=== PATIENT | male | born 1935 | race Caucasian/White ===

== ENCOUNTER 2016-09-09 13:14 | Emergency (ER) | payer MEDICARE, OTHER ==
[2016-09-09] MEDS ORDERED: Sodium Chloride 0.9% 10 ML Syringe FLUSH PRN (13:25)
[2016-09-09] MEDS ORDERED: Aspirin 81 MG Tab.Chew PO ONE (13:28)
[2016-09-09 13:35] VITALS: BP 160/101
--- NOTE | 2016-09-09 13:48 | CR ---
Chest 1V Frontal HISTORY: Shortness of breath. Comparison: 12/06/2012. FINDINGS: Cardiac size and pulmonary vessels are normal. The lungs are clear. IMPRESSION: Negative AP chest.
--- NOTE | 2016-09-09 14:10 | EDM.PDOC ---
ED HISTORY OF PRESENT ILLNESS - General Chief Complaint: Chest Pain Stated Complaint: CHEST PAIN Time Seen by Provider: 09/09/16 14:04 Source: Reports: Patient, Family History Limitations: Reports: No limitations - History of Present Illness INITIAL COMMENTS - FREE TEXT/NARRATIVE: Pt has been having sharp chest pain over the left chest that comes and goes. r Timing/Duration: Reports: Day(s):, Other ( getting more frequent) Severity: mild Location, General: Reports: chest Associated Symptoms: Reports: chest pain, shortness of breath, other (pt is only sob when he has the chest pain. ) - Related Data Allergies/ADRs: Allergies Allergy/AdvReac Type Severity Reaction Status Date / Time No Known Allergies Allergy Verified 02/14/13 10:11 Home Meds: Home Meds Donepezil [Aricept] 5 mg PO BEDTIME 02/14/13 [History] LORazepam [Ativan] 2 mg PO ASDIRECTED 02/14/13 [History] Past Medical History HEENT History: Reports: Hard of hearing Psychiatric History: Reports: Dementia Oncologic (Cancer) History: Reports: Prostate Social & Family History - Tobacco Use Smoking Status *Q: Former Smoker - Caffeine Use Caffeine Use: Reports: Coffee - Recreational Drug Use Recreational Drug Use: No ED ROS GENERAL - Review of Systems Review Of Systems: See Below Constitutional: Reports: no symptoms HEENT: Reports: No symptoms Respiratory: Reports: Shortness of Breath Cardiovascular: Reports: Chest pain, Other ( this pain comes and goes. ) Endocrine: Reports: no symptoms GI/Abdominal: Reports: No symptoms : Reports: no symptoms Musculoskeletal: Reports: no symptoms Skin: Reports: no symptoms Neurological: Reports: No Symptoms ED EXAM, GENERAL - Physical Exam Exam: See Below Free Text/Narrative:: pt is not having distress at this time. He states his chest pain does come and go. Exam Limited By: No limitations General Appearance: alert, no apparent distress Ears: normal TMs Nose: normal inspection Throat/Mouth: Normal inspection Head: atraumatic Neck: normal inspection Respiratory/Chest: no respiratory distress Cardiovascular: regular rate, rhythm GI/Abdominal: soft, non tender (Male) Exam: Deferred Rectal (Males) Exam: Deferred Back Exam: normal inspection Extremities: normal inspection Neurological: alert, oriented, other (Pt is somewhat forgetful ) Psychiatric: normal affect Course - Vital Signs Last Recorded V/S: Last Vital Signs Temp 36.3 C 09/09/16 13:35 Pulse 100 09/09/16 13:35 Resp 18 09/09/16 13:35 BP 160/101 H 09/09/16 13:35 Pulse Ox 97 09/09/16 13:35 - Orders/Labs/Meds Orders: Active Orders 24 hr Category Date Time Status EKG Documentation Completion [RC] ASDIRECTED Care 09/09/16 13:26 Active UA W/MICROSCOPIC [URIN] Urgent Lab 09/09/16 13:26 Uncollected Sodium Chloride 0.9% [Saline Flush] Med 09/09/16 13:25 Active 10 ml FLUSH ASDIRECTED PRN Saline Lock Insert [OM.PC] Routine Oth 09/09/16 13:25 Ordered EKG 12 Lead [EK] Routine Ther 09/09/16 13:26 Ordered Medication Orders Sodium Chloride (Saline Flush) 10 ml FLUSH ASDIRECTED PRN PRN Reason: Keep Vein Open Last Admin: 09/09/16 13:41 Dose: 10 ml Labs: Laboratory Tests 09/09/16 09/09/16 09/09/16 Range/Units 13:28 13:28 13:28 WBC 6.7 (4.5-11.0) K/uL RBC 4.89 (4.30-5.90) M/uL Hgb 15.8 H (12.0-15.0) g/dL Hct 44.1 (40.0-54.0) % MCV 90 (80-98) fL MCH 32 H (27-31) pg MCHC 36 (32-36) % Plt Count 205 (150-400) K/uL Neut % (Auto) 65 (36-66) % Lymph % (Auto) 25 (24-44) % [place] % (Auto) 9 H (2-6) % Eos % (Auto) 1 L (2-4) % Baso % (Auto) 1 (0-1) % Sodium 141 (140-148) mmol/L Potassium 3.6 (3.6-5.2) mmol/L Chloride 103 (100-108) mmol/L Carbon Dioxide 25 (21-32) mmol/L Anion Gap 12.8 (5.0-14.0) mmol/L BUN 16 (7-18) mg/dL Creatinine 1.3 (0.8-1.3) mg/dL Est Cr Clr Drug Dosing 41.67 mL/min Estimated GFR (MDRD) 53 L (>60) Glucose 113 H (74-106) mg/dL Calcium 8.7 (8.5-10.1) mg/dL Total Bilirubin 0.6 (0.2-1.0) mg/dL AST 22 (15-37) U/L ALT 27 (12-78) U/L Alkaline Phosphatase 54 (46-116) U/L Creatine Kinase 120 (39-308) U/L Troponin I < 0.017 (0.000-0.056) ng/mL Total Protein 7.9 (6.4-8.2) g/dL Albumin 4.1 (3.4-5.0) g/dL Globulin 3.8 H (2.3-3.5) g/dL Albumin/Globulin Ratio 1.1 L (1.2-2.2) Meds: Medications Generic Name Dose Route Start Last Admin Trade Name Freq PRN Reason Stop Dose Admin Sodium Chloride 10 ml 09/09/16 13:25 09/09/16 13:41 Saline Flush FLUSH 10 ml ASDIRECTED PRN Administration Keep Vein Open Discontinued Medications Generic Name Dose Route Start Last Admin Trade Name Freq PRN Reason Stop Dose Admin Aspirin 324 mg 09/09/16 13:28 09/09/16 13:40 Aspirin PO 09/09/16 13:29 324 mg ONETIME ONE Administration - Re-Assessments/Exams Free Text/Narrative Re-Assessment/Exam: 09/09/16 14:37 Pt arrived pain in the left chest. The pain comes and goes and it only lasts a few seconds and then it comes back. He does not get sweaty when he has the pain. He had no acute changes on ekg. he had normal cardiac enzymes and does not have pain at this time. His chest xray did not show acute changes. 09/09/16 14:39 Departure - Departure Time of Disposition: 14:41 Disposition: Home, Self-Care 01 Condition: fair Clinical Impression: Atypical chest pain Forms: ED Department Discharge Care Plan Goals: rtc for a stress test--nelile sam with Shivam Waite end of next week, rtc to the ER if his chest pain should get severe. - My Orders Last 24 Hours: My Active Orders 09/09/16 13:25 Sodium Chloride 0.9% [Saline Flush] 10 ml FLUSH ASDIRECTED PRN Saline Lock Insert [OM.PC] Routine 09/09/16 13:26 EKG Documentation Completion [RC] ASDIRECTED UA W/MICROSCOPIC [URIN] Urgent EKG 12 Lead [EK] Routine - Assessment/Plan Last 24 Hours: My Active Orders 09/09/16 13:25 Sodium Chloride 0.9% [Saline Flush] 10 ml FLUSH ASDIRECTED PRN Saline Lock Insert [OM.PC] Routine 09/09/16 13:26 EKG Documentation Completion [RC] ASDIRECTED UA W/MICROSCOPIC [URIN] Urgent EKG 12 Lead [EK] Routine
== END 2016-09-09 15:21 | disposition home or self-care (01) ==
LOC: JP.ED 13:14
DX: R07.89 Other chest pain (principal); F03.90 Unspecified dementia, unspecified severity, without behavioral disturbance, psychotic disturbance, mood disturbance, and anxiety; Z79.899 Other long term (current) drug therapy; Z85.46 Personal history of malignant neoplasm of prostate; Z87.891 Personal history of nicotine dependence
CPT/HCPCS: 36415; 71010; 80053; 82550; 84484; 85025; 93005; 99285; A9270; J7050; 93010; 99283

== ENCOUNTER 2016-11-24 19:57 | Inpatient (IN) | payer MEDICARE, OTHER ==
[2016-11-24] MEDS ORDERED: LORazepam 1 MG Tab PO ONE (21:08)
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
[2016-11-24] MEDS ORDERED: Sodium Chloride 0.9% 1,000 ML IV SCH (22:15)
[2016-11-24] MEDS ORDERED: Zolpidem 5 MG Tab PO PRN (22:50)
[2016-11-24] MEDS ORDERED: LORazepam 2 MG/ML MDV IV PRN (22:50)
[2016-11-24] MEDS ORDERED: Morphine 2 MG/ML Syringe IVPUSH PRN (22:50)
[2016-11-24] MEDS ORDERED: LORazepam 2 MG/ML MDV IVPUSH PRN (22:50)
[2016-11-24] MEDS ORDERED: Albuterol 0.083% 2.5 MG/3 ML Neb Soln NEB PRN (22:50)
[2016-11-24] MEDS ORDERED: Acetaminophen 325 MG Tab PO PRN (22:50)
[2016-11-24] MEDS ORDERED: Docusate Sodium 100 MG Cap PO PRN (22:50)
[2016-11-24] MEDS ORDERED: Bisacodyl 5 MG Tab PO PRN (22:50)
[2016-11-24] MEDS ORDERED: Promethazine 25 MG Tab PO PRN (22:50)
[2016-11-24] MEDS ORDERED: oxyCODONE 5 MG Tab PO PRN (22:50)
[2016-11-24] MEDS: cefTRIAXone 1 GM in Sodium Chloride 0.9% 50 ML IV SCH (23:28)
[2016-11-24] MEDS: Donepezil 10 MG Tab PO SCH (23:31)
[2016-11-25] MEDS: Sodium Chloride 0.9% 1,000 ML IV SCH ×2 (00:18→07:52)
--- NOTE | 2016-11-25 08:33 | PCM.HP ---
H&P History of Present Illness - General Admit Problem/Dx: Admission Diagnosis/Problem Admission Diagnosis/Problem Urinary tract infection Source of Information: Patient, Provider, RN, RN Notes Reviewed History Limitations: Reports: Altered Mental Status - History of Present Illness Initial Comments - Free Text/Narative: INITIAL COMMENTS - FREE TEXT/NARRATIVE: pt has had increased confusion. He has been trying to drive and do things that are quite dangerous for him and others. He did have a confrontation with his post acute care nurse practitioner elías. Mr. Arana has known dementia and is being cared for by his Niece, who reports worsen confusion and agitation for the past week. Brought to the ER because she was concerns for Mr. Arana and her safety. While in ER Mr. Arana continues to be confusion, mild agitation and wandering. Labs show acute UTI. will plan to admit to hospital for further care and monitoring. Onset of Symptoms: Reports: Gradual Duration of Symptoms: Reports: Week(s): (one) Location: Reports: Generalized Quality: Reports: Other (worsen confusion, agitation) Severity: Severe Improves with: Reports: None Worsens with: Reports: None - Related Data Allergies/Adverse Reactions: Allergies Allergy/AdvReac Type Severity Reaction Status Date / Time No Known Allergies Allergy Verified 11/24/16 20:11 Home Medications: Home Meds Donepezil [Aricept] 10 mg PO BEDTIME 02/14/13 [History] traZODone 50 mg PO BEDTIME 11/24/16 [History] Past Medical History HEENT History: Reports: Hard of Hearing Cardiovascular History: Reports: High Cholesterol Genitourinary History: Reports: BPH Psychiatric History: Reports: Dementia Oncologic (Cancer) History: Reports: Prostate - Infectious Disease History Infectious Disease History: Reports: Chicken Pox, Measles, Mumps Social & Family History - Tobacco Use Smoking Status *Q: Former Smoker Used Tobacco, but Quit: Yes Month Tobacco Last Used: March Second Hand Smoke Exposure: No - Caffeine Use Caffeine Use: Reports: None - Recreational Drug Use Recreational Drug Use: No - Living Situation & Occupation Living situation: Reports: , with Family Occupation: Disabled (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 [place]. His of Cancer 10 years ago, children are grown up. lives with his Niece.) H&P Review of Systems - Review of Systems: Review Of Systems: See Below General: Reports: ROS unobtainable, Weakness, Fatigue, Decreased Appetite HEENT: Reports: Other (no teeth, but able to eat regular diet) Pulmonary: Reports: No Symptoms Cardiovascular: Reports: No Symptoms Gastrointestinal: Reports: No Symptoms Genitourinary: Reports: No Symptoms Musculoskeletal: Reports: No Symptoms Skin: Reports: No Symptoms Psychiatric: Reports: Confusion, Agitation Neurological: Reports: Pre-Existing Deficit Hematologic/Lymphatic: Reports: No Symptoms Immunologic: Reports: No Symptoms Exam - Exam Exam: See Below - Vital Signs Vital Signs: Last Vital Signs Temp 36.1 C 11/25/16 08:08 Pulse 50 L 11/25/16 08:08 Resp 16 11/25/16 08:08 BP 134/90 11/25/16 08:08 Pulse Ox 96 11/25/16 08:08 Weight: 69.309 kg - Exam General: Other (pleasantly confused male, becomes agitation and rambling speech with new environment.) HEENT: PERRLA, Conjunctiva Clear, EACs Clear, EOMI, Hearing Intact, Nares Patent , Posterior Pharynx Clear, Pupils Equal, Pupils Reactive, TMs Clear, Other ( mouth no teeth present, dryness noted to oral cavity.) Neck: Supple, Trachea Midline Lungs: Clear to Auscultation, Normal Respiratory Effort Cardiovascular: Regular Rate, Regular Rhythm Abdomen: Normal Bowel Sounds, Soft (Male) Exam: Deferred Rectal (Males) Exam: Deferred Back Exam: Normal Inspection, Full Range of Motion Extremities: Normal Inspection Skin: Warm, Dry, Intact Neurological: Reflexes Equal Bilateral, Strength Equal Bilateral, Normal Speech (rambling topics) Neuro Extensive - Mental Status: Alert, Other (dementia) Psychiatric: Anxious, Agitated, Other (acute and chronic confusion) - Patient Data Lab Results Last 24 hrs: Laboratory Results - last 24 hr 11/25/16 11/25/16 Range/Units 05:11 05:11 WBC 5.6 (4.5-11.0) K/uL RBC 4.41 (4.30-5.90) M/uL Hgb 14.0 (12.0-15.0) g/dL Hct 40.1 (40.0-54.0) % MCV 91 (80-98) fL MCH 32 H (27-31) pg MCHC 35 (32-36) % Plt Count 202 (150-400) K/uL Neut % (Auto) 53 (36-66) % Lymph % (Auto) 32 (24-44) % [place] % (Auto) 10 H (2-6) % Eos % (Auto) 4 (2-4) % Baso % (Auto) 1 (0-1) % Sodium 144 (140-148) mmol/L Potassium 3.9 (3.6-5.2) mmol/L Chloride 109 H (100-108) mmol/L Carbon Dioxide 26 (21-32) mmol/L Anion Gap 12.9 (5.0-14.0) mmol/L BUN 11 (7-18) mg/dL Creatinine 1.0 (0.8-1.3) mg/dL Est Cr Clr Drug Dosing 51.39 mL/min Estimated GFR (MDRD) > 60 (>60) Glucose 99 (74-106) mg/dL Calcium 8.0 L (8.5-10.1) mg/dL Result Diagrams: 11/25/16 05:11 11/25/16 05:11 *Q Meaningful Use (ADM) - VTE *Q VTE Criteria *Q: - Stroke *Q Stroke Criteria *Q: - AMI *Q AMI Criteria *Q: - Problem List (1) Urinary tract infection SNOMED Code(s): 15118219 ICD Code: N39.0 - URINARY TRACT INFECTION, SITE NOT SPECIFIED Status: Acute Current Visit: Yes Qualifiers: Urinary tract infection type: site unspecified Hematuria presence: without hematuria Qualified Code(s): N39.0 - Urinary tract infection, site not specified (2) Confusion SNOMED Code(s): 490452134 ICD Code: R41.0 - DISORIENTATION, UNSPECIFIED Status: Acute Priority: High Current Visit: Yes (3) Dementia SNOMED Code(s): 87327931 ICD Code: F03.90 - UNSPECIFIED DEMENTIA WITHOUT BEHAVIORAL DISTURBANCE Status: Chronic Priority: High Current Visit: Yes Qualifiers: Dementia type: Alzheimer's disease Dementia behavioral disturbance: with behavioral disturbance Problem List Initiated/Reviewed/Updated: Yes Orders Last 24hrs: Active Orders 24 hr Category Date Time Status Patient Status [ADT] Routine ADT 11/24/16 22:50 Active Ambulate [RC] QID Care 11/24/16 22:50 Active Intake and Output [RC] QSHIFT Care 11/24/16 22:50 Active Oxygen Therapy [RC] PRN Care 11/24/16 22:50 Active RT Aerosol Therapy [RC] ASDIRECTED Care 11/24/16 22:50 Active Up With Assistance [RC] ASDIRECTED Care 11/24/16 22:50 Active VTE/DVT Education [RC] Per Unit Routine Care 11/24/16 22:50 Active Vital Signs [RC] Q4H Care 11/24/16 22:50 Active OT Evaluation and Treatment [CONS] Routine Cons 11/24/16 22:50 Active Regular Diet [DIET] Diet 11/24/16 Breakfast Active Acetaminophen [Tylenol] Med 11/24/16 22:50 Active 650 mg PO Q4H PRN Albuterol [Proventil Neb Soln] Med 11/24/16 22:50 Active 2.5 mg NEB Q4H PRN Bisacodyl [Dulcolax] Med 11/24/16 22:50 Active 5 mg PO DAILY PRN Docusate Sodium [Colace] Med 11/24/16 22:50 Active 100 mg PO BID PRN Donepezil [Aricept] Med 11/24/16 22:50 Active 10 mg PO BEDTIME LORazepam [Ativan] Med 11/24/16 22:50 Active 1 mg IV Q6H PRN LORazepam [Ativan] Med 11/24/16 22:50 Active See Dose Instructions IVPUSH Q4H PRN Morphine Med 11/24/16 22:50 Active 2 mg IVPUSH Q2H PRN Promethazine [Phenergan] Med 11/24/16 22:50 Active 25 mg PO Q6H PRN Sodium Chloride 0.9% [Normal Saline] 1,000 ml Med 11/24/16 22:50 Active IV ASDIRECTED Zolpidem [Ambien] Med 11/24/16 22:50 Active 5 mg PO BEDTIME PRN cefTRIAXone [Rocephin] 1 gm Med 11/24/16 23:00 Active Sodium Chloride 0.9% [Normal Saline] 50 ml IV Q24H oxyCODONE Med 11/24/16 22:50 Active 5 mg PO Q4H PRN traZODone Med 11/25/16 21:00 Active 50 mg PO BEDTIME SCD [Sequential Compression Device] [OM.PC] Routine Oth 11/24/16 23:34 Ordered Resuscitation Status Routine Resus Stat 11/24/16 22:26 Ordered Medication Orders Acetaminophen (Tylenol) 650 mg PO Q4H PRN PRN Reason: Pain (Mild 1-3)/fever Albuterol (Proventil Neb Soln) 2.5 mg NEB Q4H PRN PRN Reason: Shortness Of Breath/wheezing Bisacodyl (Dulcolax) 5 mg PO DAILY PRN PRN Reason: Constipation Docusate Sodium (Colace) 100 mg PO BID PRN PRN Reason: Constipation Donepezil HCl (Aricept) 10 mg PO BEDTIME [facility] Last Admin: 11/24/16 23:31 Dose: 10 mg Sodium Chloride (Normal Saline) 1,000 mls @ 125 mls/hr IV ASDIRECTED [facility] Last Admin: 11/25/16 07:52 Dose: 125 mls/hr Infusion: 11/25/16 07:52 Dose: 125 mls/hr Admin: 11/25/16 00:18 Dose: 125 mls/hr Ceftriaxone Sodium 1 gm/ (Sodium Chloride) 50 mls @ 100 mls/hr IV Q24H [facility] Last Admin: 11/24/16 23:28 Dose: 100 mls/hr Lorazepam (Ativan) 1 mg IV Q6H PRN PRN Reason: Nausea/Vomiting Lorazepam (Ativan) 0 mg IVPUSH Q4H PRN PRN Reason: Agitation Morphine Sulfate (Morphine) 2 mg IVPUSH Q2H PRN PRN Reason: Pain (severe 7-10) Oxycodone HCl (Oxycodone) 5 mg PO Q4H PRN PRN Reason: Pain (moderate 4-6) Promethazine HCl (Phenergan) 25 mg PO Q6H PRN PRN Reason: Nausea able to take PO Trazodone HCl (Trazodone) 50 mg PO BEDTIME JUAN Zolpidem Tartrate (Ambien) 5 mg PO BEDTIME PRN PRN Reason: Sleep Assessment/Plan Comment:: ASSESSMENT / PLAN -This is a 81 year old male present to ER with his Niece Pipe Bender who has concerns of worsen confusion, agitation over the past week. She reports he is trying to drive the equipment, she took the keys away, he became very angry. She was concerned for her and Mr. Sumit dailey, brought to ER for evaluation. While in ER labs show acute UTI, dehydrations. Due to agitation and urinary tract infection, will admit to Hospital for IV fluids, Medication and monitoring. Hopefully his confusion will resolve with IV fluid and medication and he will return to his baseline dementia. Urinary Tract Infection -Admit to [address] [place] [address] for further monitoring -IV Fluids for rehydration NS at 125 mL per hour -IV Antibiotic; Rocepin 1 gram IV -Advise to notify nurses of any chest pain or other symptoms -blood cultures x2 pending -And a.m. labs: CBC, BMP, lactic acid Dementia -increased confusion and agitation with UTI/dehydration -monitor closely, at risk for wandering -continue Aricept 10 mg at bedtime, give dose tonight Maintenance issues -Orders home meds: -Nutrition: Regular diet -Malave catheter not indicated at this time -DVT: SCD -PPI; IV Protonix 40mg daily -referral to OT for discharge planning CODE STATUS: Full Admission status: Admit to [address] [place] [address] Admission justification. This patient will be admitted for inpatient services and is medically appropriate meeting medical necessity for inpatient admission as outlined in my documentation. I reasonably expect the patient will require inpatient services that span. Time over 2 midnights. I reasonably expect this patient to be discharged or transferred within 96 hours after admission to the critical access hospital. Disposition; home or extended care facility Primary care provider: Not listed
--- NOTE | 2016-11-25 12:55 | PCM.PN ---
- General Info Date of Service: 11/25/16 - Review of Systems General: Reports: Weakness. Denies: Fever, Chills Pulmonary: Reports: no symptoms Cardiovascular: Reports: No Symptoms Gastrointestinal: Reports: No symptoms Genitourinary: Reports: no symptoms Neurological: Reports: Confusion Psychiatric: Reports: confusion, agitation Systems Review Comment:: This patient is an 81-year-old gentleman with a known history of dementia. He was admitted with a recent history of increased confusion and agitation. On evaluation in the emergency department was found to have evidence of underlying urinary tract infection which is suspected to be a potential cause of his recent worsening symptoms. He has become more weak and also had been threatening family members. He has been afebrile thus far with no evidence of underlying sepsis. - Patient Data Vitals - most recent: Last Vital Signs Temp 97.1 F 11/25/16 11:10 Pulse 90 11/25/16 11:10 Resp 20 11/25/16 11:10 BP 173/78 H 11/25/16 11:10 Pulse Ox 97 11/25/16 11:10 Weight - most recent: 152 lb 12.8 oz I&O - last 24 hours: Intake & Output 11/24/16 11/25/16 11/25/16 22:59 06:59 14:59 Intake Total 1751 1200 Output Total 785 900 Balance 966 300 Lab Results last 24 hrs: Laboratory Results - last 24 hr 11/25/16 11/25/16 Range/Units 05:11 05:11 WBC 5.6 (4.5-11.0) K/uL RBC 4.41 (4.30-5.90) M/uL Hgb 14.0 (12.0-15.0) g/dL Hct 40.1 (40.0-54.0) % MCV 91 (80-98) fL MCH 32 H (27-31) pg MCHC 35 (32-36) % Plt Count 202 (150-400) K/uL Neut % (Auto) 53 (36-66) % Lymph % (Auto) 32 (24-44) % [place] % (Auto) 10 H (2-6) % Eos % (Auto) 4 (2-4) % Baso % (Auto) 1 (0-1) % Sodium 144 (140-148) mmol/L Potassium 3.9 (3.6-5.2) mmol/L Chloride 109 H (100-108) mmol/L Carbon Dioxide 26 (21-32) mmol/L Anion Gap 12.9 (5.0-14.0) mmol/L BUN 11 (7-18) mg/dL Creatinine 1.0 (0.8-1.3) mg/dL Est Cr Clr Drug Dosing 51.39 mL/min Estimated GFR (MDRD) > 60 (>60) Glucose 99 (74-106) mg/dL Calcium 8.0 L (8.5-10.1) mg/dL Med Orders - Current: Current Medications Acetaminophen (Tylenol) 650 mg PO Q4H PRN PRN Reason: Pain (Mild 1-3)/fever Albuterol (Proventil Neb Soln) 2.5 mg NEB Q4H PRN PRN Reason: Shortness Of Breath/wheezing Bisacodyl (Dulcolax) 5 mg PO DAILY PRN PRN Reason: Constipation Divalproex Sodium (Divalproex Sodium) 250 mg PO TIDMEALS [facility] Docusate Sodium (Colace) 100 mg PO BID PRN PRN Reason: Constipation Donepezil HCl (Aricept) 10 mg PO BEDTIME [facility] Last Admin: 11/24/16 23:31 Dose: 10 mg Ceftriaxone Sodium 1 gm/ (Sodium Chloride) 50 mls @ 100 mls/hr IV Q24H [facility] Last Admin: 11/24/16 23:28 Dose: 100 mls/hr Lorazepam (Ativan) 1 mg IV Q6H PRN PRN Reason: Nausea/Vomiting Lorazepam (Ativan) 0 mg IVPUSH Q4H PRN PRN Reason: Agitation Melatonin (Melatonin) 9 mg PO BEDTIME [facility] Morphine Sulfate (Morphine) 2 mg IVPUSH Q2H PRN PRN Reason: Pain (severe 7-10) Non-Formulary Medication (Donepezil [Aricept]) 10 mg PO BEDTIME [facility] Oxycodone HCl (Oxycodone) 5 mg PO Q4H PRN PRN Reason: Pain (moderate 4-6) Promethazine HCl (Phenergan) 25 mg PO Q6H PRN PRN Reason: Nausea able to take PO Trazodone HCl (Trazodone) 50 mg PO BEDTIME [facility] Zolpidem Tartrate (Ambien) 5 mg PO BEDTIME PRN PRN Reason: Sleep Discontinued Medications Sodium Chloride (Normal Saline) 1,000 mls @ 999 mls/hr IV ASDIRECTED [facility] Last Admin: 11/24/16 22:50 Dose: 999 mls/hr Sodium Chloride (Normal Saline) 1,000 mls @ 125 mls/hr IV ASDIRECTED [facility] Last Admin: 11/25/16 07:52 Dose: 125 mls/hr Lorazepam (Ativan) 1 mg PO ONETIME ONE Stop: 11/24/16 21:09 Last Admin: 11/24/16 21:14 Dose: 1 mg - Exam General: alert, no acute distress Lungs: Clear to auscultation, Normal respiratory effort Cardiovascular: Regular Rate, Regular Rhythm, No Murmurs Abdomen: bowel sounds present, soft, no tenderness, no distension Extremities: no edema Skin: warm, dry, intact Psy/Mental Status: agitated - Problem List Review Problem List Initiated/Reviewed/Updated: Yes - My Orders Last 24 Hours: My Active Orders 11/25/16 12:30 Divalproex Sodium 250 mg PO TIDMEALS 11/25/16 12:50 Convert IV to Saline Lock [OM.PC] Routine 11/25/16 21:00 Donepezil [Aricept] 10 mg PO BEDTIME Melatonin 9 mg PO BEDTIME - Plan Plan:: ASSESSMENT / PLAN Urinary Tract Infection with dehydration- stable since admission, no evidence of underlying sepsis. He has been afebrile and hemodynamically stable -Saline lock IV -IV Antibiotic; Rocepin 1 gram IV -blood cultures x2 pending Dementia-increased confusion and agitation with UTI/dehydration -monitor closely, at risk for wandering -continue Aricept 10 mg at bedtime, give dose tonight -Haldol 1 mg by mouth as needed for agitation -Melatonin 9 mg by mouth daily at bedtime -Valproic acid 250 mg by mouth 3 times a day Maintenance issues -Orders home meds: -Nutrition: Regular diet -Malave catheter not indicated at this time -DVT: SCD -PPI; IV Protonix 40mg daily -referral to OT for discharge planning CODE STATUS: Full Admission status: Admit to [address] [place] [address]. This patient will be admitted for inpatient services and is medically appropriate meeting medical necessity for inpatient admission as outlined in my documentation. I reasonably expect the patient will require inpatient services that span. Time over 2 midnights. I reasonably expect this patient to be discharged or transferred within 96 hours after admission to the critical access hospital. Disposition; home or extended care facility Primary care provider: Not listed
[2016-11-25] MEDS: Divalproex Sodium Delayed-Release 250 MG Tab.CR PO SCH ×2 (13:39→16:42)
[2016-11-25] MEDS ORDERED: Donepezil 10 MG Tab PO SCH (21:00)
[2016-11-25] MEDS: Donepezil 10 MG Tab PO SCH (21:26)
[2016-11-25] MEDS: Melatonin 3 MG Tab PO SCH (21:26)
[2016-11-25] MEDS: traZODone 50 MG Tab PO SCH (21:27)
[2016-11-25] MEDS: cefTRIAXone 1 GM in Sodium Chloride 0.9% 50 ML IV SCH (22:41)
[2016-11-26] MEDS: Divalproex Sodium Delayed-Release 250 MG Tab.CR PO SCH ×3 (07:56→17:38)
--- NOTE | 2016-11-26 15:57 | PCM.PN ---
- General Info Date of Service: 11/26/16 Functional Status: Reports: pain controlled, tolerating diet, urinating - Review of Systems General: Reports: Weakness. Denies: Fever, Chills Pulmonary: Reports: no symptoms Cardiovascular: Reports: No Symptoms Gastrointestinal: Reports: No symptoms Psychiatric: Reports: confusion, agitation Systems Review Comment:: This patient has been stable since yesterday, agitation seems to be well managed with current regimen. Urine culture is growing only mixed ladonna, making significant UTI much less likely. Will discontinue IV antibiotic therapy. He is ready for discharge to long term but unfortunately guardianship has not yet been formalized. We'll need to wait for long term placement until his guardian has been designated. - Patient Data Vitals - most recent: Last Vital Signs Temp 97.3 F 11/26/16 14:29 Pulse 82 11/26/16 14:29 Resp 18 11/26/16 14:29 BP 148/89 H 11/26/16 14:29 Pulse Ox 98 11/26/16 14:29 Weight - most recent: 152 lb 12.8 oz I&O - last 24 hours: Intake & Output 11/26/16 11/26/16 11/26/16 06:59 14:59 22:59 Intake Total 750 120 200 Balance 750 120 200 Nikita Results last 24 hrs: Microbiology 11/24/16 22:47 Urine Culture - Preliminary Urine, Clean Catch MIXED POSITIVE LADONNA DAY 1 Med Orders - Current: Current Medications Acetaminophen (Tylenol) 650 mg PO Q4H PRN PRN Reason: Pain (Mild 1-3)/fever Albuterol (Proventil Neb Soln) 2.5 mg NEB Q4H PRN PRN Reason: Shortness Of Breath/wheezing Bisacodyl (Dulcolax) 5 mg PO DAILY PRN PRN Reason: Constipation Divalproex Sodium (Divalproex Sodium) 250 mg PO TIDMEALS [facility] Last Admin: 11/26/16 12:52 Dose: 250 mg Docusate Sodium (Colace) 100 mg PO BID PRN PRN Reason: Constipation Donepezil HCl (Aricept) 10 mg PO BEDTIME [facility] Last Admin: 11/25/16 21:26 Dose: 10 mg Haloperidol (Haldol) 1 mg PO Q2H PRN PRN Reason: Agitation Melatonin (Melatonin) 9 mg PO BEDTIME [facility] Last Admin: 11/25/16 21:26 Dose: 9 mg Morphine Sulfate (Morphine) 2 mg IVPUSH Q2H PRN PRN Reason: Pain (severe 7-10) Oxycodone HCl (Oxycodone) 5 mg PO Q4H PRN PRN Reason: Pain (moderate 4-6) Promethazine HCl (Phenergan) 25 mg PO Q6H PRN PRN Reason: Nausea able to take PO Trazodone HCl (Trazodone) 50 mg PO BEDTIME [facility] Last Admin: 11/25/16 21:27 Dose: 50 mg Zolpidem Tartrate (Ambien) 5 mg PO BEDTIME PRN PRN Reason: Sleep Discontinued Medications Sodium Chloride (Normal Saline) 1,000 mls @ 999 mls/hr IV ASDIRECTED [facility] Last Admin: 11/24/16 22:50 Dose: 999 mls/hr Sodium Chloride (Normal Saline) 1,000 mls @ 125 mls/hr IV ASDIRECTED [facility] Last Admin: 11/25/16 07:52 Dose: 125 mls/hr Ceftriaxone Sodium 1 gm/ (Sodium Chloride) 50 mls @ 100 mls/hr IV Q24H [facility] Last Admin: 11/25/16 22:41 Dose: 100 mls/hr Lorazepam (Ativan) 1 mg PO ONETIME ONE Stop: 11/24/16 21:09 Last Admin: 11/24/16 21:14 Dose: 1 mg Lorazepam (Ativan) 1 mg IV Q6H PRN PRN Reason: Nausea/Vomiting Lorazepam (Ativan) 0 mg IVPUSH Q4H PRN PRN Reason: Agitation - Exam Lungs: Clear to auscultation, Normal respiratory effort Cardiovascular: Regular Rate, Regular Rhythm, No Murmurs Abdomen: bowel sounds present, soft, no tenderness, no distension - Problem List Review Problem List Initiated/Reviewed/Updated: Yes - My Orders Last 24 Hours: My Active Orders 11/25/16 21:00 Melatonin 9 mg PO BEDTIME - Plan Plan:: ASSESSMENT / PLAN Urinary Tract Infection with dehydration- blood cultures have been negative and urine culture growing only mixed ladonna -Saline lock IV -Discontinue IV Rocephin -blood cultures x2 pending Dementia-increased confusion and agitation with UTI/dehydration -monitor closely, at risk for wandering -continue Aricept 10 mg at bedtime, give dose tonight -Haldol 1 mg by mouth as needed for agitation -Melatonin 9 mg by mouth daily at bedtime -Valproic acid 250 mg by mouth 3 times a day Maintenance issues -Orders home meds: -Nutrition: Regular diet -Malave catheter not indicated at this time -DVT: SCD -PPI; IV Protonix 40mg daily -referral to OT for discharge planning CODE STATUS: Full Admission status: Admit to [address] [place] [address] justification. This patient will be admitted for inpatient services and is medically appropriate meeting medical necessity for inpatient admission as outlined in my documentation. I reasonably expect the patient will require inpatient services that span. Time over 2 midnights. I reasonably expect this patient to be discharged or transferred within 96 hours after admission to the critical access hospital. Disposition; plan for discharge to long term once guardianship has been arranged Primary care provider: Not listed
[2016-11-26] MEDS: Melatonin 3 MG Tab PO SCH (20:26)
[2016-11-26] MEDS: traZODone 50 MG Tab PO SCH (20:27)
[2016-11-26] MEDS: Donepezil 10 MG Tab PO SCH (20:28)
[2016-11-27] MEDS: Divalproex Sodium Delayed-Release 250 MG Tab.CR PO SCH ×4 (07:52→16:59)
[2016-11-27] MEDS: Haloperidol 1 MG Tab PO PRN ×2 (08:46→13:14)
[2016-11-27] MEDS ORDERED: Haloperidol Lactate 5 MG/ML SDV IVPUSH PRN (12:25)
--- NOTE | 2016-11-27 12:28 | PCM.PN ---
- General Info Date of Service: 11/27/16 - Review of Systems General: Reports: No Symptoms Pulmonary: Reports: no symptoms Cardiovascular: Reports: No Symptoms Gastrointestinal: Reports: No symptoms Psychiatric: Reports: confusion, agitation Systems Review Comment:: Mr. Arana has experienced increased agitation during the day today. Vital signs have been stable and he has remained afebrile. Currently awaiting custodial placement pending guardianship. - Patient Data Vitals - most recent: Last Vital Signs Temp 96.6 F 11/27/16 11:45 Pulse 108 H 11/27/16 11:45 Resp 17 11/27/16 11:45 BP 162/79 H 11/27/16 11:45 Pulse Ox 98 11/27/16 11:45 Weight - most recent: 152 lb 12.8 oz I&O - last 24 hours: Intake & Output 11/26/16 11/27/16 11/27/16 22:59 06:59 14:59 Intake Total 560 Balance 560 Nikita Results last 24 hrs: Microbiology 11/24/16 22:47 Urine Culture - Final Urine, Clean Catch MIXED POSITIVE LADONNA DAY 2 Med Orders - Current: Current Medications Acetaminophen (Tylenol) 650 mg PO Q4H PRN PRN Reason: Pain (Mild 1-3)/fever Albuterol (Proventil Neb Soln) 2.5 mg NEB Q4H PRN PRN Reason: Shortness Of Breath/wheezing Bisacodyl (Dulcolax) 5 mg PO DAILY PRN PRN Reason: Constipation Divalproex Sodium (Divalproex Sodium) 500 mg PO TIDMEALS JUAN Docusate Sodium (Colace) 100 mg PO BID PRN PRN Reason: Constipation Donepezil HCl (Aricept) 10 mg PO BEDTIME [facility] Last Admin: 11/26/16 20:28 Dose: 10 mg Haloperidol (Haldol) 1 mg PO Q2H PRN PRN Reason: Agitation Last Admin: 11/27/16 08:46 Dose: 1 mg Haloperidol Lactate (Haldol) 1 mg IVPUSH Q2H PRN PRN Reason: Agitation Melatonin (Melatonin) 9 mg PO BEDTIME [facility] Last Admin: 11/26/16 20:26 Dose: 9 mg Morphine Sulfate (Morphine) 2 mg IVPUSH Q2H PRN PRN Reason: Pain (severe 7-10) Oxycodone HCl (Oxycodone) 5 mg PO Q4H PRN PRN Reason: Pain (moderate 4-6) Promethazine HCl (Phenergan) 25 mg PO Q6H PRN PRN Reason: Nausea able to take PO Trazodone HCl (Trazodone) 50 mg PO BEDTIME [facility] Last Admin: 11/26/16 20:27 Dose: 50 mg Zolpidem Tartrate (Ambien) 5 mg PO BEDTIME PRN PRN Reason: Sleep Discontinued Medications Divalproex Sodium (Divalproex Sodium) 250 mg PO TIDMEALS [facility] Last Admin: 11/27/16 11:36 Dose: 250 mg Sodium Chloride (Normal Saline) 1,000 mls @ 999 mls/hr IV ASDIRECTED [facility] Last Admin: 11/24/16 22:50 Dose: 999 mls/hr Sodium Chloride (Normal Saline) 1,000 mls @ 125 mls[facility] Last Admin: 11/25/16 07:52 Dose: 125 mls/hr Ceftriaxone Sodium 1 gm/ (Sodium Chloride) 50 mls @ 100 mls/hr IV Q24H [facility] Last Admin: 11/25/16 22:41 Dose: 100 mls/hr Lorazepam (Ativan) 1 mg PO ONETIME ONE Stop: 11/24/16 21:09 Last Admin: 11/24/16 21:14 Dose: 1 mg Lorazepam (Ativan) 1 mg IV Q6H PRN PRN Reason: Nausea/Vomiting Lorazepam (Ativan) 0 mg IVPUSH Q4H PRN PRN Reason: Agitation - Exam Quality Assessment: DVT prophylaxis General: alert, mild distress Lungs: Clear to auscultation, Normal respiratory effort Cardiovascular: Regular Rate, Regular Rhythm, No Murmurs Abdomen: bowel sounds present, soft, no tenderness, no distension Extremities: no edema Skin: warm, dry, intact - Problem List Review Problem List Initiated/Reviewed/Updated: Yes - My Orders Last 24 Hours: My Active Orders 11/27/16 12:25 Divalproex Sodium 500 mg PO TIDMEALS Haloperidol Lactate [Haldol] 1 mg IVPUSH Q2H PRN - Plan Plan:: ASSESSMENT / PLAN Urinary Tract Infection with dehydration- blood cultures have been negative and urine culture growing only mixed ladonna -Saline lock IV -Discontinue IV Rocephin -blood cultures x2 negative thus far Still showing some confusion with agitation -monitor closely, at risk for wandering -continue Aricept 10 mg at bedtime, give dose tonight -Haldol 1 mg by mouth as needed for agitation -Melatonin 9 mg by mouth daily at bedtime -Valproic acid 500 mg mg by mouth 3 times a day Maintenance issues -Orders home meds: -Nutrition: Regular diet -Malave catheter not indicated at this time -DVT: SCD -PPI; IV Protonix 40mg daily -referral to OT for discharge planning CODE STATUS: Full Admission status: Admit to [address] [place] [address] Admission justification. This patient will be admitted for inpatient services and is medically appropriate meeting medical necessity for inpatient admission as outlined in my documentation. I reasonably expect the patient will require inpatient services that span. Time over 2 midnights. I reasonably expect this patient to be discharged or transferred within 96 hours after admission to the [facility]. Disposition; plan for discharge to custodial once guardianship has been arranged Primary care provider: Not listed
[2016-11-27] MEDS: traZODone 50 MG Tab PO SCH (20:43)
[2016-11-27] MEDS: Melatonin 3 MG Tab PO SCH (20:43)
[2016-11-27] MEDS: Donepezil 10 MG Tab PO SCH (20:43)
[2016-11-28] MEDS: Divalproex Sodium Delayed-Release 250 MG Tab.CR PO SCH ×3 (07:36→17:32)
[2016-11-28] MEDS: Haloperidol 1 MG Tab PO PRN ×2 (09:16→15:07)
--- NOTE | 2016-11-28 11:14 | PCM.PN ---
- General Info Date of Service: 11/28/16 Functional Status: Reports: tolerating diet, ambulating, urinating - Review of Systems General: Denies: Fever, Weakness, Chills Pulmonary: Reports: no symptoms Cardiovascular: Reports: No Symptoms Gastrointestinal: Reports: No symptoms Psychiatric: Reports: confusion, agitation Systems Review Comment:: This patient has been fairly stable over the past 24 hours, continues to ambulate and wandering the halls but overall has been fairly pleasant and in no way aggressive. He has remained afebrile and denies other symptoms. - Patient Data Vitals - most recent: Last Vital Signs Temp 98.2 F 11/28/16 10:27 Pulse 121 H 11/28/16 10:27 Resp 20 11/28/16 10:27 BP 152/78 H 11/28/16 10:27 Pulse Ox 96 11/28/16 10:27 Weight - most recent: 152 lb 12.8 oz I&O - last 24 hours: Intake & Output 11/27/16 11/28/16 11/28/16 22:59 06:59 14:59 Intake Total 360 Output Total 200 300 Balance 160 -300 Med Orders - Current: Current Medications Acetaminophen (Tylenol) 650 mg PO Q4H PRN PRN Reason: Pain (Mild 1-3)/fever Albuterol (Proventil Neb Soln) 2.5 mg NEB Q4H PRN PRN Reason: Shortness Of Breath/wheezing Bisacodyl (Dulcolax) 5 mg PO DAILY PRN PRN Reason: Constipation Divalproex Sodium (Divalproex Sodium) 500 mg PO TIDMEALS [facility] Last Admin: 11/28/16 07:36 Dose: 500 mg Docusate Sodium (Colace) 100 mg PO BID PRN PRN Reason: Constipation Donepezil HCl (Aricept) 10 mg PO BEDTIME [facility] Last Admin: 11/27/16 20:43 Dose: 10 mg Haloperidol (Haldol) 1 mg PO Q2H PRN PRN Reason: Agitation Last Admin: 11/28/16 09:16 Dose: 1 mg Haloperidol Lactate (Haldol) 1 mg IVPUSH Q2H PRN PRN Reason: Agitation Melatonin (Melatonin) 9 mg PO BEDTIME [facility] Last Admin: 11/27/16 20:43 Dose: 9 mg Morphine Sulfate (Morphine) 2 mg IVPUSH Q2H PRN PRN Reason: Pain (severe 7-10) Oxycodone HCl (Oxycodone) 5 mg PO Q4H PRN PRN Reason: Pain (moderate 4-6) Promethazine HCl (Phenergan) 25 mg PO Q6H PRN PRN Reason: Nausea able to take PO Trazodone HCl (Trazodone) 50 mg PO BEDTIME [facility] Last Admin: 11/27/16 20:43 Dose: 50 mg Zolpidem Tartrate (Ambien) 5 mg PO BEDTIME PRN PRN Reason: Sleep Discontinued Medications Divalproex Sodium (Divalproex Sodium) 250 mg PO TIDMEALS [facility] Last Admin: 11/27/16 11:36 Dose: 250 mg Sodium Chloride (Normal Saline) 1,000 mls @ 999 mls/hr IV ASDIRECTED [facility] Last Admin: 11/24/16 22:50 Dose: 999 mls/hr Sodium Chloride (Normal Saline) 1,000 mls @ 125 mls/hr IV ASDIRECTED [facility] Last Admin: 11/25/16 07:52 Dose: 125 mls/hr Ceftriaxone Sodium 1 gm/ (Sodium Chloride) 50 mls @ 100 mls/hr IV Q24H [facility] Last Admin: 11/25/16 22:41 Dose: 100 mls/hr Lorazepam (Ativan) 1 mg PO ONETIME ONE Stop: 11/24/16 21:09 Last Admin: 11/24/16 21:14 Dose: 1 mg Lorazepam (Ativan) 1 mg IV Q6H PRN PRN Reason: Nausea/Vomiting Lorazepam (Ativan) 0 mg IVPUSH Q4H PRN PRN Reason: Agitation - Exam Quality Assessment: DVT prophylaxis General: alert, cooperative Lungs: Clear to auscultation, Normal respiratory effort Cardiovascular: Regular Rate, Regular Rhythm, No Murmurs Abdomen: bowel sounds present, soft, no tenderness, no distension Extremities: no edema Skin: warm, dry, intact - Problem List Review Problem List Initiated/Reviewed/Updated: Yes - My Orders Last 24 Hours: My Active Orders 11/27/16 12:25 Haloperidol Lactate [Haldol] 1 mg IVPUSH Q2H PRN 11/27/16 14:00 Divalproex Sodium 500 mg PO TIDMEALS - Plan Plan:: ASSESSMENT / PLAN Urinary Tract Infection with dehydration- blood cultures have been negative and urine culture growing only mixed ladonna -Saline lock IV -Discontinue IV Rocephin -blood cultures x2 negative thus far Still showing some confusion with agitation -monitor closely, at risk for wandering -continue Aricept 10 mg at bedtime, give dose tonight -Haldol 1 mg by mouth as needed for agitation -Melatonin 9 mg by mouth daily at bedtime -Valproic acid 500 mg mg by mouth 3 times a day Maintenance issues -Orders home meds: -Nutrition: Regular diet -Malave catheter not indicated at this time -DVT: SCD -PPI; IV Protonix 40mg daily -referral to OT for discharge planning CODE STATUS: Full Admission status: Admit to [address] [place] [address]. This patient will be admitted for inpatient services and is medically appropriate meeting medical necessity for inpatient admission as outlined in my documentation. I reasonably expect the patient will require inpatient services that span. Time over 2 midnights. I reasonably expect this patient to be discharged or transferred within 96 hours after admission to the critical access hospital. Disposition; plan for discharge to skilled nursing once guardianship has been arranged Primary care provider: Not listed
[2016-11-28] MEDS: Melatonin 3 MG Tab PO SCH (21:41)
[2016-11-28] MEDS: Donepezil 10 MG Tab PO SCH (21:41)
[2016-11-28] MEDS: traZODone 50 MG Tab PO SCH (21:41)
[2016-11-29] MEDS: Divalproex Sodium Delayed-Release 250 MG Tab.CR PO SCH ×3 (08:00→18:18)
[2016-11-29] MEDS: Haloperidol 1 MG Tab PO PRN ×2 (08:02→14:08)
--- NOTE | 2016-11-29 11:08 | PCM.PN ---
- General Info Date of Service: 11/29/16 Functional Status: Reports: pain controlled, tolerating diet, ambulating - Review of Systems General: Denies: Weakness Pulmonary: Denies: shortness of breath Gastrointestinal: Denies: Abdominal pain Psychiatric: Reports: confusion Systems Review Comment:: No acute events overnight. No major behavioral issues but has been out walking on regular basis. Easily redirectable at this time. Keeps wondering when he gets to go home. Does not complain of pain or shortness of breath. He has not had any fevers. Slept well last night. - Patient Data Vitals - most recent: Last Vital Signs Temp 36.4 C 11/29/16 11:00 Pulse 95 11/29/16 11:00 Resp 18 11/29/16 11:00 BP 153/91 H 11/29/16 11:00 Pulse Ox 96 11/29/16 11:00 Weight - most recent: 69.309 kg I&O - last 24 hours: Intake & Output 11/28/16 11/29/16 11/29/16 22:59 06:59 14:59 Intake Total 360 300 120 Output Total 600 Balance -240 300 120 Med Orders - Current: Current Medications Acetaminophen (Tylenol) 650 mg PO Q4H PRN PRN Reason: Pain (Mild 1-3)/fever Albuterol (Proventil Neb Soln) 2.5 mg NEB Q4H PRN PRN Reason: Shortness Of Breath/wheezing Bisacodyl (Dulcolax) 5 mg PO DAILY PRN PRN Reason: Constipation Divalproex Sodium (Divalproex Sodium) 500 mg PO TIDMEALS [facility] Last Admin: 11/29/16 08:00 Dose: 500 mg Docusate Sodium (Colace) 100 mg PO BID PRN PRN Reason: Constipation Donepezil HCl (Aricept) 10 mg PO BEDTIME [facility] Last Admin: 11/28/16 21:41 Dose: 10 mg Haloperidol (Haldol) 1 mg PO Q2H PRN PRN Reason: Agitation Last Admin: 11/29/16 08:02 Dose: 1 mg Haloperidol Lactate (Haldol) 1 mg IVPUSH Q2H PRN PRN Reason: Agitation Melatonin (Melatonin) 9 mg PO BEDTIME [facility] Last Admin: 11/28/16 21:41 Dose: 9 mg Morphine Sulfate (Morphine) 2 mg IVPUSH Q2H PRN PRN Reason: Pain (severe 7-10) Oxycodone HCl (Oxycodone) 5 mg PO Q4H PRN PRN Reason: Pain (moderate 4-6) Promethazine HCl (Phenergan) 25 mg PO Q6H PRN PRN Reason: Nausea able to take PO Trazodone HCl (Trazodone) 50 mg PO BEDTIME [facility] Last Admin: 11/28/16 21:41 Dose: 50 mg Zolpidem Tartrate (Ambien) 5 mg PO BEDTIME PRN PRN Reason: Sleep Discontinued Medications Divalproex Sodium (Divalproex Sodium) 250 mg PO TIDMEALS [facility] Last Admin: 11/27/16 11:36 Dose: 250 mg Sodium Chloride (Normal Saline) 1,000 mls @ 999 mls/hr IV ASDIRECTED [facility] Last Admin: 11/24/16 22:50 Dose: 999 mls/hr Sodium Chloride (Normal Saline) 1,000 mls @ 125 mls/hr IV ASDIRECTED [facility] Last Admin: 11/25/16 07:52 Dose: 125 mls/hr Ceftriaxone Sodium 1 gm/ (Sodium Chloride) 50 mls @ 100 mls/hr IV Q24H [facility] Last Admin: 11/25/16 22:41 Dose: 100 mls/hr Lorazepam (Ativan) 1 mg PO ONETIME ONE Stop: 11/24/16 21:09 Last Admin: 11/24/16 21:14 Dose: 1 mg Lorazepam (Ativan) 1 mg IV Q6H PRN PRN Reason: Nausea/Vomiting Lorazepam (Ativan) 0 mg IVPUSH Q4H PRN PRN Reason: Agitation - Exam General: alert, cooperative, no acute distress. No: oriented Neck: supple Lungs: Normal respiratory effort Cardiovascular: Regular Rate, Regular Rhythm Abdomen: soft, no distension Extremities: no edema Skin: warm, dry Psy/Mental Status: alert, normal affect - Problem List Review Problem List Initiated/Reviewed/Updated: Yes - Plan Plan:: ASSESSMENT / PLAN Urinary Tract Infection with dehydration, ruled out - cultures have been negative so far. Antibiotics have been discontinued. -Saline lock IV Dementia with behavioral disturbance - no major behavior issues the past couple of days. He does wonder around the unit but is easily redirectable. Sleeping well at night. No obvious cause for worsening of behaviors recently with no evidence for infection. -monitor closely, at risk for wandering -continue Aricept 10 mg at bedtime, give dose tonight -Haldol 1 mg by mouth as needed for agitation -Melatonin 9 mg by mouth daily at bedtime -Valproic acid 500 mg mg by mouth 3 times a day Maintenance issues -Orders home meds: -Nutrition: Regular diet -Malave catheter not indicated at this time -DVT: SCD Disposition - plan for discharge to [facility] once guardianship has been arranged Edwin Mauro M.D.
[2016-11-29] MEDS: Donepezil 10 MG Tab PO SCH (21:03)
[2016-11-29] MEDS: Melatonin 3 MG Tab PO SCH (21:03)
[2016-11-29] MEDS: traZODone 50 MG Tab PO SCH (21:03)
[2016-11-30] MEDS: Divalproex Sodium Delayed-Release 250 MG Tab.CR PO SCH ×2 (08:51→12:07)
--- NOTE | 2016-11-30 09:24 | PCM.DCSUM1 ---
Discharge Summary - Hospital Course Brief History: 81 -year-old male with history of Alzheimer's dementia who presented with increasing confusion and agitation. He was admitted for management of suspected urinary tract infection. - Discharge Data Discharge Date: 11/30/16 Discharge Disposition: DC/Tfer to SNF 03 Condition: Fair - Discharge Diagnosis/Problem(s) (1) Dementia with behavioral disturbance SNOMED Code(s): 2659598259828 ICD Code: F03.91 - UNSPECIFIED DEMENTIA WITH BEHAVIORAL DISTURBANCE Status : Acute Current Visit: Yes Qualifiers: Dementia type: Alzheimer's disease Alzheimer's disease onset: late-onset Qualified Code(s): G30.1 - Alzheimer's disease with late onset; F02.81 - Dementia in other diseases classified elsewhere with behavioral disturbance (2) Acute cystitis with negative culture SNOMED Code(s): 177115461 ICD Code: N30.00 - ACUTE CYSTITIS WITHOUT HEMATURIA Status: Suspected Current Visit: Yes - Patient Summary/Data Consults: Consultations 11/24/16 22:50 OT Evaluation and Treatment [CONS] Routine Please Evaluate and Treat. OT Reason for Consult: Discharge Planning This query below is only for informational purposes and is not editable. Hospital Course: David presented to the emergency room with increased confusion and agitation as well as some threatening behaviors towards his family and caregivers. Workup in the emergency room was suspicious for acute cystitis and he was started on antibiotics and admitted to the hospital for additional management. The morning after admission he was started on valproic acid as well as melatonin at bedtime to help manage his behaviors. Over the next 24 hours she did have some improvement in his agitation. He has not had a spell during the course of the hospital stay. On the second day of the hospital stay the urine culture is growing mixed ladonna and antibiotics were discontinued. He's not having any fevers. Clinically is been stable with normal blood pressures. Repeat laboratory testing was unremarkable. Stable over the course of the weekend. He was not felt safe to be discharged home. He was not agreeable to be discharged to a facility but we do not feel that he is competent to make his own decision given his advanced dementia. His family has completed paperwork for guardianship. This time the plan is for him to be discharged to a senior care facility to provide a safe environment for him. Clinically he has been stable for several days with no significant behavior issues. He seems to be tolerating the melatonin and valproic acid fairly well. He sleeps well at night with use of melatonin. He is active during the day and does a fair amount of walking but has not had any outbursts. There has been no evidence for infection such as fever or change in symptoms over the past 4 days. He is safe for outpatient management at this time but was not safe to be discharged home on his own. He'll be discharged to a senior care facility near his family for further management. - Patient Instructions Diet: Regular Diet as Tolerated Activity: As Tolerated Driving: Do Not Drive Showering/Bathing: May Shower Notify Provider of: Fever, Increased Pain, Nausea and/or Vomiting Other/Special Instructions: 1. You were in the hospital for management of increased confusion, urgently thought secondary to acute cystitis. The urine culture did not grow a specific bacteria. The confusion seems to have improved but unfortunately your baseline memory issues make it unsafe for you to be at home alone at this time. I do recommend rehabilitation at a penitentiary and possibly memory care placement for your safety. 2. We have added divalproex 500 mg taken with meals to help stabilize your mood. We have also added melatonin 10 mg to be taken at bedtime to help improve your sleep. 3. Please seek medical attention if you develop fever greater than 101, have increasing confusion, you develop severe abdominal pain or persistent vomiting or diarrhea. - Discharge Plan Prescriptions/Med Rec: Acetaminophen [Tylenol] 650 mg PO Q4H PRN #100 tablet PRN Reason: Pain/Fever Divalproex Sodium [Depakote] 500 mg PO TIDAC #90 tab Docusate Sodium [Colace] 100 mg PO BID PRN #60 cap PRN Reason: Constipation Melatonin 10 mg PO BEDTIME #30 tablet Home Medications: Home Meds Donepezil [Aricept] 10 mg PO BEDTIME 02/14/13 [History] traZODone 50 mg PO BEDTIME 11/24/16 [History] Acetaminophen [Tylenol] 650 mg PO Q4H PRN #100 tablet 11/30/16 [Rx] Divalproex Sodium [Depakote] 500 mg PO TIDAC #90 tab 11/30/16 [Rx] Docusate Sodium [Colace] 100 mg PO BID PRN #60 cap 11/30/16 [Rx] Melatonin 10 mg PO BEDTIME #30 tablet 11/30/16 [Rx] Patient Handouts: Valproic Acid, Divalproex Sodium capsules, Alzheimer Disease Referrals: PCP,None [Primary Care Provider] - (followup with your primary care as needed after your stay [facility] the [facility]) - Discharge Summary/Plan Comment DC Time >30 min.: Yes (new [facility] discharge - 40 ) - Patient Data Vitals - Most Recent: Last Vital Signs Temp 36.2 C 11/30/16 07:00 Pulse 100 11/30/16 07:00 Resp 18 11/30/16 07:00 BP 160/90 H 11/30/16 07:00 Pulse Ox 95 11/30/16 07:00 Weight - Most Recent: 69.309 kg I&O - Last 24 hours: Intake & Output 11/29/16 11/30/16 11/30/16 22:59 06:59 14:59 Intake Total 237 240 Balance 237 240 Med Orders - Current: Current Medications Acetaminophen (Tylenol) 650 mg PO Q4H PRN PRN Reason: Pain (Mild 1-3)/fever Last Admin: 11/30/16 08:51 Dose: 650 mg Albuterol (Proventil Neb Soln) 2.5 mg NEB Q4H PRN PRN Reason: Shortness Of Breath/wheezing Bisacodyl (Dulcolax) 5 mg PO DAILY PRN PRN Reason: Constipation Divalproex Sodium (Divalproex Sodium) 500 mg PO TIDMEALS [facility] Last Admin: 11/30/16 08:51 Dose: 500 mg Docusate Sodium (Colace) 100 mg PO BID PRN PRN Reason: Constipation Donepezil HCl (Aricept) 10 mg PO BEDTIME [facility] Last Admin: 11/29/16 21:03 Dose: 10 mg Haloperidol (Haldol) 1 mg PO Q2H PRN PRN Reason: Agitation Last Admin: 11/29/16 14:08 Dose: 1 mg Haloperidol Lactate (Haldol) 1 mg IVPUSH Q2H PRN PRN Reason: Agitation Melatonin (Melatonin) 9 mg PO BEDTIME [facility] Last Admin: 11/29/16 21:03 Dose: 9 mg Morphine Sulfate (Morphine) 2 mg IVPUSH Q2H PRN PRN Reason: Pain (severe 7-10) Oxycodone HCl (Oxycodone) 5 mg PO Q4H PRN PRN Reason: Pain (moderate 4-6) Last Admin: 11/30/16 08:51 Dose: 5 mg Promethazine HCl (Phenergan) 25 mg PO Q6H PRN PRN Reason: Nausea able to take PO Trazodone HCl (Trazodone) 50 mg PO BEDTIME [facility] Last Admin: 11/29/16 21:03 Dose: 50 mg Zolpidem Tartrate (Ambien) 5 mg PO BEDTIME PRN PRN Reason: Sleep Discontinued Medications Divalproex Sodium (Divalproex Sodium) 250 mg PO TIDMEALS [facility] Last Admin: 11/27/16 11:36 Dose: 250 mg Sodium Chloride (Normal Saline) 1,000 mls @ 999 mls/hr IV ASDIRECTED [facility] Last Admin: 11/24/16 22:50 Dose: 999 mls/hr Sodium Chloride (Normal Saline) 1,000 mls @ 125 mls/hr IV ASDIRECTED [facility] Last Admin: 11/25/16 07:52 Dose: 125 mls/hr Ceftriaxone Sodium 1 gm/ (Sodium Chloride) 50 mls @ 100 mls/hr IV Q24H [facility] Last Admin: 11/25/16 22:41 Dose: 100 mls/hr Lorazepam (Ativan) 1 mg PO ONETIME ONE Stop: 11/24/16 21:09 Last Admin: 11/24/16 21:14 Dose: 1 mg Lorazepam (Ativan) 1 mg IV Q6H PRN PRN Reason: Nausea/Vomiting Lorazepam (Ativan) 0 mg IVPUSH Q4H PRN PRN Reason: Agitation - Exam Quality Assessment: Denies: supplemental oxygen General: Reports: alert, cooperative, no acute distress. Denies: oriented Neck: Reports: supple Lungs: Reports: Normal respiratory effort Abdomen: Reports: soft, no distension Skin: Reports: warm, dry Psy/Mental Status: Reports: alert, normal affect *Q Meaningful Use (DIS) - VTE *Q VTE Criteria *Q: - Stroke *Q Stroke Criteria *Q: - AMI *Q AMI Criteria *Q:
[2016-11-30 11:03] VITALS: BP 160/84
== END 2016-11-30 12:25 | DRG 690 ==
LOC: JP.ED 19:57 → JP.MS 22:24
PROVIDERS: ADMIT Hospitalist; ATTEND Internal Medicine
DX: N30.00 Acute cystitis without hematuria (principal); F02.81 Dementia in other diseases classified elsewhere, unspecified severity, with behavioral disturbance; G30.9 Alzheimer's disease, unspecified; E86.0 Dehydration; Z91.83 Wandering in diseases classified elsewhere; Z87.891 Personal history of nicotine dependence; H91.90 Unspecified hearing loss, unspecified ear; R41.82 Altered mental status, unspecified; N40.0 Benign prostatic hyperplasia without lower urinary tract symptoms; Z85.46 Personal history of malignant neoplasm of prostate; R45.1 Restlessness and agitation; R41.0 Disorientation, unspecified; G30.1 Alzheimer's disease with late onset
CPT/HCPCS: 36415; 80053; 81001; 85025; 99285; A9270; G0480; 80048; 87086; 97166-GO; J0696; J7040; J7050